=== PATIENT | female | born 1990 | race Caucasian/White ===

== ENCOUNTER 2018-04-28 06:46 | Emergency (ER) | payer MEDICAID ==
[~2018-04-28] VITALS: Ht 172.7 cm; Wt 90.7 kg
[2018-04-28 06:50] VITALS: BP 121/60
[2018-04-28 07:51] VITALS: BP 137/88
== END 2018-04-28 07:51 | disposition home or self-care (01) ==
LOC: MED 06:46
DX: J03.90 Acute tonsillitis, unspecified (principal); J02.9 Acute pharyngitis, unspecified
CPT/HCPCS: 36415; 87081; 87804; 99284